=== PATIENT | female | born 2000 | race Caucasian/White ===

== ENCOUNTER → 2020-09-15 09:54 | Outpatient (CLI) | payer OTHER, SELFPAY ==
[2020-06-10 09:23] VITALS: BMI 24.5
[2020-09-15 13:38] LABS: Thyroid Stim Hormone (TSH) 0.84 uIU/mL (0.358-3.74)
== END ==
PROVIDERS: PCP Pediatrics; Visit Provider Family Medicine
DX: E04.9 Nontoxic goiter, unspecified (principal)
CPT/HCPCS: 36415; 84443

== ENCOUNTER → 2020-10-20 12:48 | Outpatient (CLI) | payer OTHER, SELFPAY ==
[2020-06-10 09:23] VITALS: BMI 24.5
--- NOTE | 2020-10-20 12:52 | US_ITS ---
INDICATION: ENLARGED THYROID EXAMINATION: US Thyroid (eg thyroid, parathyroid, parotid) TECHNIQUE: Goodwin scale and color doppler imaging was performed of the thyroid gland. COMPARISON: None. FINDINGS: RIGHT THYROID LOBE: Measures 4.5 x 2.1 x 1.6 cm. Homogeneous echotexture with normal vascularity. [No thyroid nodules are present. LEFT THYROID LOBE: Measures 4.6 x 1.5 x 1.6 cm. Homogeneous echotexture with normal vascularity. [No thyroid nodules are present. ISTHMUS: Measures 3 mm. No thyroid nodules are present. US/Thyroid IMPRESSION: Normal thyroid. Electronically Signed: Timothy Smith MD at 18:05 EDT Tel , Service support ,
== END ==
PROVIDERS: PCP Family Medicine; Referring Provider Family Medicine; Visit Provider Family Medicine
DX: E04.9 Nontoxic goiter, unspecified (principal)
CPT/HCPCS: 76536

== ENCOUNTER → 2021-06-06 15:15 | Outpatient (CLI) | payer OTHER, SELFPAY ==
[2021-06-06 17:48] LABS: Absolute Lymphocyte Count 2.15 X10^3/uL (0.83-4.51); Absolute Neutrophil Count 4.5 X10^3/uL (2.0-7.7); Basophil# 0.06 X10^3/uL; Basophil% 0.8 % (0-1); Eosinophil# 0.09 X10^3/uL; Eosinophils% 1.2 % (0-5); Hematocrit 41.6 % (37-47); Hemoglobin 13.6 g/dL (12.0-15.0); Lymphocyte # 2.15 X10^3/ul (0.83-4.51); Lymphocyte % 29.2 % (19-41); Mean Corp Hgb Conc 32.7 g/dL (32-36); Mean Corpuscular Hgb 28.6 pg (27.0-32.0); Mean Corpuscular Volume 87.6 fL (81-99); Mean Platelet Vol. 11.3 fl (6.2-12.0); Monocyte# 0.59 X10^3/uL; NRBC Flagged by Analyzer 0 % (0-5); Neutrophil # 4.45 X10^3/uL (2.7-7.7); Neutrophil % 60.5 % (47-70); Platelet Count 353 K/mm3 (150-450); RBC Distribution Width CV 12.6 % (11.6-14.6); RBC Distribution Width SD 40.4 fl (35.1-43.9); Red Blood Count 4.75 M/mm3 (4.2-5.4); White Blood Count 7.4 K/mm3 (4.4-11.0)
[2021-06-06 18:19] LABS: Ferritin 8 ng/mL (8-252); Iron 51 ug/dL (50-170); Iron Binding Capacity,Total 420 ug/dL (250-450); PERCENT IRON SATURATION 12.1 % (15.0-55.0); T4 Free Direct 0.97 ng/dL (0.76-1.46); Thyroid Stim Hormone (TSH) 0.95 uIU/mL (0.358-3.74)
[2021-06-06 18:30] LABS: Vitamin B12 308 pg/mL (211-911)
[2021-06-14 04:06] LABS: Testosterone, Free 0.56 ng/dL (0.10-0.85); Testosterone, Total 33 ng/dL (13-71)
[2021-06-14 08:42] LABS: Androstenedione 197 ng/dL (41-262); Sex Hormone-binding Globulin 42.4 nmol/L (24.6-122.0); Zinc, Plasma or Serum 74 ug/dL (44-115)
== END ==
PROVIDERS: PCP Family Medicine; Referring Provider Dermatology; Visit Provider Dermatology
DX: L65.0 Telogen effluvium (principal); L70.0 Acne vulgaris
CPT/HCPCS: 36415; 82157; 82306; 82607; 82627; 82652; 82728; 82746; 83540; 83550; 84270; 84402; 84403; 84439; 84443; 84630; 85025; 86038; 82626